=== PATIENT | male | born 1980 | race Caucasian/White ===

== ENCOUNTER → 2019-05-06 | Outpatient (CLI) | payer OTHER ==
--- NOTE | 2019-05-06 12:30 | KCIC ---
MRI Brain without contrast History: Traumatic brain injury, headache, balance problems, cognitive changes, blurred vision, tinnitus Technique: Multiplanar, multisequential noncontrast MR imaging was performed of the brain. Comparison: None Findings: There is mild motion. There is no evidence of recent infarct or cytotoxic edema. The ventricles, sulci, and cisterns are within normal limits in size and configuration. There is cavum septum pellucidum. There is no significant midline shift, intraaxial mass effect, or focal abnormal extra-axial fluid collection. There is no significant signal abnormality including hemosiderin deposition of the brain parenchyma. There is preservation of the major intracranial flow-voids at the skull base. The mastoid air cells are aerated. The cerebellar tonsils are normal in location. There is no significant abnormality of the pineal gland or pituitary gland. There is mild bilateral ethmoid air cell, more confluent opacification anterior right ethmoid air cell. There is [id number] left and mild right inferior maxillary sinus mucosal thickening, also likely mucous retention cyst inferiorly on the left about 1.6 cm AP. There is very minimal right frontal sinus mucosal thickening. There is preserved marrow signal of the clivus. Impression: 1. There is no significant intracranial abnormality. 2. There is paranasal sinus mucosal thickening as stated. Electronically signed by: Vernon Dupont MD (05/06/2019 12:27 PM) [id number]
== END | disposition home or self-care (01) ==
LOC: KCIC MRI 10:12
PROVIDERS: ATTEND Psychiatry & Neurology Neurology with Special Qualifications in Child Neurology
DX: S06.9X1A Unspecified intracranial injury with loss of consciousness of 30 minutes or less, initial encounter (principal); J34.89 Other specified disorders of nose and nasal sinuses; G44.321 Chronic post-traumatic headache, intractable; X58.XXXA Exposure to other specified factors, initial encounter; Y93.89 Activity, other specified; Y92.89 Other specified places as the place of occurrence of the external cause; Y99.8 Other external cause status
CPT/HCPCS: 70551